=== PATIENT | female | born 1975 | race Caucasian/White ===

== ENCOUNTER → 2017-01-09 | Outpatient (CLI) | payer BC ==
--- NOTE | 2017-01-11 10:22 | MM ---
Reason for exam: screening (asymptomatic). Baseline mammogram. Physical Findings: Nurse did not find any significant physical abnormalities on exam. MG Screening Mammo w CAD Bilateral CC and MLO view(s) were taken. The breast tissue is heterogeneously dense. This may lower the sensitivity of mammography. Finding: There is a 17 mm equal density (isodense), lobulated mass located 4 cm from the nipple in the middle position. These results were verbally communicated with the patient and result sheet given to the patient on 01/09/17. ASSESSMENT: Incomplete: need additional imaging evaluation, BI-RAD 0 RECOMMENDATION: Ultrasound of the left breast. [facility] will attempt to contact patient to return for ultrasound.
--- NOTE | 2017-01-11 10:24 | USB ---
Reason for exam: additional evaluation requested from abnormal screening. US Breast Workup Limited LT Left breast ultrasound demonstrates a 13 x 10 x 16mm solid, hypoechoic, lobulated lesion at the retroareolar position for which a biopsy is recommended and a 6 x 5 x 5mm cystic lesion at 12 o'clock. These results were verbally communicated with the patient and result sheet given to the patient on 01/09/17. ASSESSMENT: Suspicious, BI-RAD 4 RECOMMENDATION: Surgical consultation and ultrasound core biopsy of the left breast. Called Dr. Farmer with mammographic findings and has scheduled an appointment for the patient for 01/23/17 at 3:[address] Thrasher. Biopsy scheduled for 01/19/17 at 8:00. PRELIMINARY REPORT CALLED AND FAXED TO DR. THRASHER ON 01/11/17 AT 300/TP.
== END | disposition home or self-care (01) ==
LOC: RADMAMWWP 15:45
PROVIDERS: ATTEND Family Medicine
DX: Z12.31 Encounter for screening mammogram for malignant neoplasm of breast (principal); R92.8 Other abnormal and inconclusive findings on diagnostic imaging of breast
CPT/HCPCS: 76642; G0202